=== PATIENT | female | born 1980 | race Two or more races ===

== ENCOUNTER 2017-10-28 13:10 | Emergency (ER) | payer SELFPAY ==
[2017-10-28 13:57] VITALS: BMI 24.0
[2017-10-28 14:04] VITALS: RESP 18; TEMP 98.5; O2SAT 100
--- NOTE | 2017-10-28 14:49 | ED PDOC ---
Arrival/HPI - General Chief Complaint: Trauma Time Seen by Provider: 10/28/17 14:31 Historian: Patient - History of Present Illness Narrative History of Present Illness (Text): 10/28/17 14:45 37yo female with surgical history of left ankle/foot ORIF who present with left 5th toe pain. states steel table ran over her left toe today. Came to ED secondary to the swelling and pain. Did not take any medication for the pain. denies any other complaint. Past Medical History - Provider Review Nursing Documentation Reviewed: Yes - Cardiac Hx Cardiac Disorders: No - Pulmonary Hx Respiratory Disorders: No - Neurological Hx Neurological Disorder: No - HEENT Hx HEENT Disorder: No - Renal Hx Renal Disorder: No - Endocrine/Metabolic Hx Endocrine Disorders: No - Musculoskeletal/Rheumatological Hx Musculoskeletal Disorders: Yes Hx Fractures: Yes (left foot) - Psychiatric Hx Substance Use: Yes (marijuana) - Surgical History Hx Musculoskeletal Surgery: Yes (left foot) - Anesthesia Hx Anesthesia: Yes Hx Anesthesia Reactions: No Hx Malignant Hyperthermia: No Family/Social History - Physician Review Nursing Documentation Reviewed: Yes Family/Social History: Unknown Family HX Smoking Status: Current Some Days Smoker Hx Alcohol Use: No Hx Substance Use: Yes (marijuana) Allergies/Home Meds Allergies/Adverse Reactions: Allergies No Known Allergies Allergy (Verified 10/28/17 13:57) Review of Systems - Physician Review All systems were reviewed & negative as marked: Yes - Review of Systems Constitutional: Normal Eyes: Normal ENT: Normal Respiratory: Normal Cardiovascular: Normal Gastrointestinal: Normal Genitourinary Female: Normal Musculoskeletal: Arthralgias (Left 4th toe) Skin: Normal Neurological: Normal Endocrine: Normal Hemo/Lymphatic: Normal Psychiatric: Normal Physical Exam Vital Signs Reviewed: Yes Vital Signs Temp Pulse Resp BP Pulse Ox 10/28/17 13:57 98.5 F 58 L 18 110/78 100 Temperature: Afebrile Blood Pressure: Normal Pulse: Regular Respiratory Rate: Normal Appearance: Positive for: Well-Appearing, Non-Toxic, Comfortable Pain Distress: None Mental Status: Positive for: Alert and Oriented X 3 - Systems Exam Head: Present: Atraumatic, Normocephalic Pupils: Present: PERRL Extroacular Muscles: Present: EOMI Conjunctiva: Present: Normal Mouth: Present: Moist Mucous Membranes Neck: Present: Normal Range of Motion Respiratory/Chest: Present: Clear to Auscultation, Good Air Exchange. No: Respiratory Distress, Accessory Muscle Use Cardiovascular: Present: Regular Rate and Rhythm, Normal S1, S2. No: Murmurs Abdomen: No: Tenderness, Distention, Peritoneal Signs Back: Present: Normal Inspection Upper Extremity: Present: Normal Inspection. No: Cyanosis, Edema Lower Extremity: Present: NORMAL PULSES, Tenderness (Distal left 4th toe), Swelling (Left distal 4th toe), Erythema, Neurovascularly Intact. No: Edema, CALF TENDERNESS, Deformity, Temperature Abnormalties Neurological: Present: GCS=15, CN II-XII Intact, Speech Normal Skin: Present: Warm, Dry, Normal Color. No: Rashes Psychiatric: Present: Alert, Oriented x 3, Normal Insight, Normal Concentration Medical Decision Making ED Course and Treatment: 10/28/17 21:01 Left foot xray - No acute fracture of toe. Pins in place. Result was DW the pt. She states she will do the scot tapping herself at home. Referred to ortho. - RAD Interpretation Radiology Orders: 10/28/17 14:31 FOOT LEFT 5TH DIGIT (TOE) [RAD] Stat - Medication Orders Current Medication Orders: Discontinued Medications Ibuprofen (Motrin Tab) 600 mg PO STAT STA Stop: 10/28/17 14:33 Last Admin: 10/28/17 14:50 Dose: Not Given Non-Admin Reason: Patient Refused Disposition/Present on Arrival - Present on Arrival Any Indicators Present on Arrival: No History of DVT/PE: No History of Uncontrolled Diabetes: No Urinary Catheter: No History of Decub. Ulcer: No History Surgical Site Infection Following: None - Disposition Have Diagnosis and Disposition been Completed?: Yes Diagnosis: Toe contusion Disposition: HOME/ ROUTINE Disposition Time: 15:00 Patient Plan: Discharge Condition: STABLE Discharge Instructions (ExitCare): Toe Injury Additional Instructions: Follow up with your doctor/Orthopedist Return to ED for any new or worsening symptoms Prescriptions: Ibuprofen [Motrin Tab] 600 mg PO Q6 #15 tab Referrals: Oj Pickett DO [Staff Provider] - Follow up with primary Forms: [employer] (Tunisian)
--- NOTE | 2017-10-28 14:57 | RAD ---
Date of service: 10/28/2017 PROCEDURE: Right Foot Radiographs. HISTORY: toe pain s/p trauma COMPARISON: None. FINDINGS: BONES: Postsurgical changes involving the distal tibia, ulna, 1st and 2nd digits as well as the medial and middle cuneiforms. Nonspecific patchy sclerosis of the lateral cuneiform and cuboid. Deformities of the 2nd, 3rd and 4th metatarsal heads. JOINTS: Normal. SOFT TISSUES: Normal. OTHER FINDINGS: None. IMPRESSION: Postsurgical changes as described above. Nonspecific patchy sclerosis of the lateral cuneiform and cuboid.
[2017-10-29 00:52] VITALS: BP 112/82; PULSE 62
== END 2017-10-28 14:50 | disposition home or self-care (01) ==
LOC: MERGE 13:10 → ED 13:10
DX: S90.122A Contusion of left lesser toe(s) without damage to nail, initial encounter (principal); W22.8XXA Striking against or struck by other objects, initial encounter; Y92.9 Unspecified place or not applicable

== ENCOUNTER 2017-11-18 11:01 | Emergency (ER) | payer SELFPAY ==
[2017-11-18 11:16] VITALS: BMI 23.8
[2017-11-18] MEDS ORDERED: Sodium Chloride 0.9% 1,000 ML IV STA (11:16)
[2017-11-18] MEDS ORDERED: Morphine 4 mg/ml ISec IVP STA (11:16)
--- NOTE | 2017-11-18 11:28 | ED PDOC ---
Arrival/HPI - General Historian: Patient <Betty Marte A - Last Filed: 11/18/17 19:32> <Matt Sterling - Last Filed: 11/20/17 11:50> - General Chief Complaint: Female Genitourinary Time Seen by Provider: 11/18/17 11:16 - History of Present Illness Narrative History of Present Illness (Text): 11/18/17 11:20 37yo female with no pmhx who present with complaint of abdominal pain and vaginal bleeding x 4days. States she pulled a heavy metal at work on Saturday and started having abdominal pain with vaginal bleeding the next day. She states that she feels a "knot" in her abdomen. she denies back pain, chest pain, SOB, diaphoresis, dizziness, focal weakness, urinary symptoms, any other complaint. States her LMP was last week. Denies any other complaint. (Betty Marte A) Past Medical History - Provider Review Nursing Documentation Reviewed: Yes - Cardiac Hx Cardiac Disorders: No - Pulmonary Hx Respiratory Disorders: No - Neurological Hx Neurological Disorder: No - HEENT Hx HEENT Disorder: No - Renal Hx Renal Disorder: No - Endocrine/Metabolic Hx Endocrine Disorders: No - Musculoskeletal/Rheumatological Hx Musculoskeletal Disorders: Yes Hx Fractures: Yes (left foot) - Psychiatric Hx Substance Use: Yes (marijuana) - Surgical History Hx Musculoskeletal Surgery: Yes (left foot) - Anesthesia Hx Anesthesia: Yes Hx Anesthesia Reactions: No Hx Malignant Hyperthermia: No <Betty Marte A - Last Filed: 11/18/17 19:32> Family/Social History - Physician Review Nursing Documentation Reviewed: Yes Family/Social History: Unknown Family HX Smoking Status: Current Some Days Smoker Hx Alcohol Use: No Hx Substance Use: Yes (marijuana) <Betty Marte A - Last Filed: 11/18/17 19:32> Allergies/Home Meds <Betty Marte A - Last Filed: 11/18/17 19:32> <Matt Sterling - Last Filed: 11/20/17 11:50> Allergies/Adverse Reactions: Allergies No Known Allergies Allergy (Verified 11/18/17 11:27) Home Medications: Home Meds Medication Instructions Recorded Confirmed No Known Home Med 11/18/17 11/18/17 Review of Systems - Physician Review All systems were reviewed & negative as marked: Yes - Review of Systems Constitutional: Normal Eyes: Normal ENT: Normal Respiratory: Normal Cardiovascular: Normal Gastrointestinal: Abdominal Pain. absent: Constipation, Diarrhea, Nausea, Vomiting, Hematochezia, Hematemesis Genitourinary Female: Vaginal Bleeding Musculoskeletal: Normal Skin: Normal Neurological: Normal Endocrine: Normal Hemo/Lymphatic: Normal Psychiatric: Normal <Diru,Happiness A - Last Filed: 11/18/17 19:32> Physical Exam Vital Signs Reviewed: Yes Temperature: Afebrile Blood Pressure: Normal Pulse: Regular Respiratory Rate: Normal Appearance: Positive for: Well-Appearing, Non-Toxic, Comfortable Pain Distress: None Mental Status: Positive for: Alert and Oriented X 3 - Systems Exam Head: Present: Atraumatic, Normocephalic Pupils: Present: PERRL Extroacular Muscles: Present: EOMI Conjunctiva: Present: Normal Mouth: Present: Moist Mucous Membranes Neck: Present: Normal Range of Motion Respiratory/Chest: Present: Clear to Auscultation, Good Air Exchange. No: Respiratory Distress, Accessory Muscle Use Cardiovascular: Present: Regular Rate and Rhythm, Normal S1, S2. No: Murmurs Abdomen: Present: Tenderness (Diffuse tenderness), Normal Bowel Sounds, Guarding (Voluntary), Hernias (Vernia hernia palpable and tender), Other (soft) . No: Distention, Peritoneal Signs, Rebound, McBurney's Point Tender, Rovsing' s Sign Present Genitourinary/Pelvic Exam: Present: Vaginal Bleeding (Very mild/scanty blood noted in vault), Cervical os Closed Back: Present: Normal Inspection Upper Extremity: Present: Normal Inspection. No: Cyanosis, Edema Lower Extremity: Present: Normal Inspection. No: Edema Neurological: Present: GCS=15, CN II-XII Intact, Speech Normal Skin: Present: Warm, Dry, Normal Color. No: Rashes Psychiatric: Present: Alert, Oriented x 3, Normal Insight, Normal Concentration <Diru,Happiness A - Last Filed: 11/18/17 19:32> Vital Signs Temp Pulse Resp BP Pulse Ox 11/18/17 15:00 98.6 F 72 18 126/82 98 11/18/17 14:19 77 18 125/77 100 11/18/17 11:29 98.6 F 71 18 106/75 96 Medical Decision Making <Diru,Happiness A - Last Filed: 11/18/17 19:32> <AsherMatt - Last Filed: 11/20/17 11:50> ED Course and Treatment: 11/18/17 19:32 Pt present to ED for stated history. She was not in any distress. Hemodynamically stable. Lab was ordered and beta of 17,703.00 was noted. Blood type was positive. Transvaingal US IMPRESSION: 1. No evidence of intrauterine gestational sac. 2.4 x 2.4 x 2.0 cm cystic structure in the right adnexa is concerning for ectopic . 2. 2.1 cm cyst in the right ovary. Important findings were discussed with Matt in the ER on 11/18/2017 at 1:00 p.m. Abdominal US IMPRESSION: No cholelithiasis or biliary dilatation. Case was DW Dr. Vanessa and she requested pt to be transferred to [place] where she is. States pt could be a candidate for Methotrexate or D& C. Result and plan to transfer was DW the pt and she agreed. Consent was obtained. (Betty Marte) - Lab Interpretations Lab Results: 11/18/17 12:00 11/18/17 13:12 Lab Results 11/18/17 13:12: Blood Type B POSITIVE, Antibody Screen Negative, BBK History Checked No verified bt 11/18/17 13:12: Sodium 141, Potassium 3.8, Chloride 104, Carbon Dioxide 26, Anion Gap 16, BUN 8, Creatinine 0.5 L, Est GFR ( Amer) > 60, Est GFR (Non -Af Amer) > 60, Random Glucose 87, Calcium 9.3, Magnesium 1.8, Total Bilirubin 0.3, AST 26, ALT 24, Alkaline Phosphatase 62, Total Protein 8.3, Albumin 4.6, Globulin 3.7, Albumin/Globulin Ratio 1.3, Lipase 122 11/18/17 12:21: Blood Type Confirm B POSITIVE 11/18/17 12:00: Beta HCG, Quant 62673.00 H 11/18/17 12:00: Blood Type Cancelled, Antibody Screen Cancelled, BBK History Checked Cancelled 11/18/17 12:00: PT 12.0, INR 1.05, APTT 27.7 11/18/17 12:00: WBC 4.9, RBC 3.87, Hgb 11.8 L, Hct 34.6 L, MCV 89.4, MCH 30.5, MCHC 34.1, RDW 12.3, Plt Count 366, MPV 9.7, Gran % 55.1, Lymph % (Auto) 33.6, Gillespie % (Auto) 8.6 H, Eos % (Auto) 2.5, Baso % (Auto) 0.2, Gran # 2.69, Lymph # ( Auto) 1.6, Gillespie # (Auto) 0.4, Eos # (Auto) 0.1, Baso # (Auto) 0.01 11/18/17 11:52: Urine Color Yellow, Urine Appearance Clear, Urine pH 6.0, Ur Specific Clarence 1.010, Urine Protein Negative, Urine Glucose (UA) Negative, Urine Ketones Negative, Urine Blood Trace-intact H, Urine Nitrate Negative, Urine Bilirubin Negative, Urine Urobilinogen 0.2, Ur Leukocyte Esterase Trace H , Urine RBC 1 - 3, Urine WBC 2 - 5, Ur Epithelial Cells 3 - 4, Urine Bacteria Mod - RAD Interpretation Radiology Orders: 11/18/17 11:18 OB TRANSVAGINAL [US] Stat 11/18/17 11:45 ABDOMEN COMPLETE [US] Stat - Medication Orders Current Medication Orders: Discontinued Medications Sodium Chloride (Sodium Chloride 0.9%) 1,000 mls @ 1,000 mls/hr IV .Q1H STA Stop: 11/18/17 12:15 Last Admin: 11/18/17 11:52 Dose: 1,000 mls/hr eMAR Start Stop Document 11/18/17 11:52 HI (Rec: 11/18/17 12:42 [place] [email or web address] Intravenous Solution Start Date 11/18/17 Start Time 11:52 - 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 <Matt Sterling - Last Filed: 11/20/17 11:50> Disposition/Present on Arrival - Present on Arrival Any Indicators Present on Arrival: No History of DVT/PE: No History of Uncontrolled Diabetes: No Urinary Catheter: No History of Decub. Ulcer: No History Surgical Site Infection Following: None - Disposition Have Diagnosis and Disposition been Completed?: Yes Disposition Time: 15:00 <Betty Marte - Last Filed: 11/18/17 19:32> <Matt Sterling - Last Filed: 11/20/17 11:50> - Disposition Diagnosis: Ectopic Disposition: Transfer HUMU Condition: STABLE Discharge Instructions (ExitCare): Ectopic (DC) Forms: [employer] (Thai)
[2017-11-18 11:34] VITALS: RESP 18; TEMP 98.6
[2017-11-18 12:20] LABS: BASO # 0.01 K/mm3 (0.0-2.0); BASO % 0.2 % (0.0-3.0); EOS # 0.1 (0.0-0.7); EOS % 2.5 % (1.5-5.0); GRAN # 2.69 (1.4-6.5); GRAN % 55.1 % (50.0-68.0); HEMOGLOBIN 11.8 g/dL (12.0-16.0); LYMPH # 1.6 (1.2-3.4); LYMPH % 33.6 % (22.0-35.0); MEAN CELL VOLUME 89.4 fl (80.0-105.0); MEAN CORPUSCULAR HEMOGLOBIN 30.5 pg (25.0-35.0); MEAN CORPUSCULAR HGB CONC 34.1 g/dl (31.0-37.0); MEAN PLATELET VOLUME 9.7 fl (7.0-11.0); MONO # 0.4 (0.1-0.6); MONO % 8.6 % (1.0-6.0); RBC 3.87 10^6/uL (3.5-6.1); RED CELL DISTRIBUTION WIDTH 12.3 % (11.5-14.5); WHITE BLOOD COUNT 4.9 10^3/ul (4.5-11.0)
[2017-11-18 12:26] LABS: URINE BILIRUBIN NEGATIVE (NEGATIVE); URINE BLOOD TRACE-INTACT (NEGATIVE); URINE GLUCOSE (UA) NEGATIVE (NEGATIVE); URINE LEUKOCYTE ESTERASE TRACE Leu/uL (NEGATIVE); URINE PROTEIN NEGATIVE mg/dL (<30 mg/dL); URINE UROBILINOGEN 0.2 E.U./dL (<1 E.U./dL)
[2017-11-18 12:28] LABS: URINE APPEARANCE CLEAR (CLEAR); URINE COLOR YELLOW (YELLOW)
[2017-11-18 12:36] LABS: INR 1.05; PARTIAL THROMBOPLASTIN TIME 27.7 Seconds (25.1-36.5)
[2017-11-18 12:40] LABS: URINE BACTERIA MOD (NEG)
--- NOTE | 2017-11-18 13:16 | US ---
Date of service: 11/18/2017 HISTORY: vaginal bleeding COMPARISON: None available. TECHNIQUE: Transvaginal pelvic ultrasound was performed. FINDINGS: UTERUS: Measures 10.8 x 4.7 x 6.5 cm. Anteverted, normal in size and appearance. No fibroid or other mass lesion seen. ENDOMETRIUM: Measures 15 mm in diameter. Minimal fluid in the endometrial canal. No evidence of intrauterine gestation. CERVIX: No cervical abnormality identified. RIGHT OVARY: Measures 4.3 x 2.0 x 3.6 cm. No solid mass. Normal flow. There is a 2.1 x 1.4 x 1.9 cm cyst. Also noted is a 2.4 x 2.4 x 2.0 cm round anechoic mass with echogenic rim medial to the ovary in the right adnexa. No significant peripheral increased vascularity. LEFT OVARY: Measures 3.2 x 1.7 x 4.1 cm. No solid mass. Normal flow. FREE FLUID: No significant free fluid noted. OTHER FINDINGS: None. IMPRESSION: 1. No evidence of intrauterine gestational sac. 2.4 x 2.4 x 2.0 cm cystic structure in the right adnexa is concerning for ectopic . 2. 2.1 cm cyst in the right ovary. Important findings were discussed with Matt in the ER on 11/18/2017 at 1:00 p.m.
--- NOTE | 2017-11-18 13:25 | US ---
Date of service: 11/18/2017 HISTORY: Abdominal pain COMPARISON: None. TECHNIQUE: Grayscale imaging was performed. FINDINGS: LIVER: Measures 17.5 cm. Normal echogenicity of the liver parenchyma. No mass. No intrahepatic bile duct dilatation. GALLBLADDER: There are no gallstones, wall thickening or pericholecystic fluid. The sonographic Tejada's sign is negative. COMMON BILE DUCT: Measures 3.3 mm. No stones. No dilatation. PANCREAS: Unremarkable as visualized. No mass. No ductal dilatation. RIGHT KIDNEY: Measures 11.5cm. Normal echogenicity. No calculus, mass, or hydronephrosis. LEFT KIDNEY: Measures 10.4cm. Normal echogenicity. No calculus, mass, or hydronephrosis. SPLEEN: Normal in size and contour. No mass. AORTA: No aneurysmal dilatation. IVC: Unremarkable. OTHER FINDINGS: None. IMPRESSION: No cholelithiasis or biliary dilatation.
[2017-11-18 13:46] LABS: ALB/GLOB RATIO 1.3 (1.1-1.8); ALBUMIN 4.6 g/dL (3.0-4.8); ALT/SGPT 24 U/L (7-56); AST/SGOT 26 U/L (14-36); BLOOD UREA NITROGEN 8 mg/dL (7-21); CALCIUM 9.3 mg/dL (8.4-10.5); GFR AFRICAN-AMERICAN > 60; GFR NON-AFRICAN AMERICAN > 60; LIPASE 122 U/L (23-300)
[2017-11-18 15:08] VITALS: BP 126/82; PULSE 72; O2SAT 98
== END 2017-11-18 15:15 | disposition short-term general hospital (02) ==
LOC: ED 11:01
DX: O00.90 Unspecified ectopic pregnancy without intrauterine pregnancy (principal)
CPT/HCPCS: 76700; 76817; 80053; 81001; 83690; 83735; 84702; 85025; 85610; 85730; 86850; 86900; 99284; J7030